=== PATIENT | male | born 1970 | race Two or more races ===

== ENCOUNTER 2021-09-17 19:00 | Emergency (ER) | payer OTHER ==
[~2021-09-17] VITALS: Ht 190.5 cm; Wt 89.8 kg
== END 2021-09-17 20:33 | disposition home or self-care (01) ==
LOC: ER 19:00
DX: S99.911A Unspecified injury of right ankle, initial encounter (principal); W19.XXXA Unspecified fall, initial encounter; Y93.9 Activity, unspecified; Y92.830 Public park as the place of occurrence of the external cause